=== PATIENT | male | born 1990 | race Caucasian/White ===

== ENCOUNTER 2018-10-09 19:15 | Emergency (ER) | payer BC, MEDICAID, OTHER ==
[2018-10-09 19:36] LABS: Bilirubin Negative (Negative); Blood, Urine Moderate (Negative); Clarity CLOUDY (Clear); Glucose, Urine (Dipstick) Negative (Negative); Leukocyte Large (Negative); Nitrite Negative (Negative); Protein, Urine (Dipstick) 30 mg/dL (Neg-Trace)
[2018-10-09 19:39] LABS: Bacteria/HPF None Seen HPF (None Seen); Hyaline Casts/LPF 0-3 HYALINE CAST LPF (0-3 Hyaline); Pathc Cast-AUWi Flag 0.13 (0-2.49); RBC/HPF 21-50 HPF (0-3); Squamous Epithelial None Seen HPF (0-3)
[2018-10-09] MEDS ORDERED: cefTRIAXone\\ROCEPHIN 250 MG VIAL ONE (21:51)
[2018-10-09] MEDS ORDERED: Azithromycin 250 MG TAB ONE (21:51)
[2018-10-09] MEDS ORDERED: Lidocaine 1% PF 5 ML VIAL ONE (21:51)
[2018-10-13 09:18] LABS: Chlam.trachomatis by PCR,Urine DETECTED (NotDetected)
== END 2018-10-09 22:17 | disposition home or self-care (01) ==
LOC: ERS 19:15
DX: R36.9 Urethral discharge, unspecified (principal); R30.0 Dysuria; Z87.891 Personal history of nicotine dependence
CPT/HCPCS: 81003; 81015; 87491; 87591; 96372; J0696; J2001